=== PATIENT | female | born 1970 | race Caucasian/White ===

== ENCOUNTER 2016-11-19 13:24 | Emergency (ER) | payer BC ==
--- NOTE | 2016-11-19 14:09 | CR ---
EXAMINATION: PA chest radiograph. HISTORY: Shortness of breath. FINDINGS: The trachea is midline. The cardiomediastinal silhouette is within normal limits. No pulmonary infil trates, effusions or pneumothorax. Osseous structures appear unremarkable. IMPRESSION: No acute cardiopulmonary process.
[2016-11-19 14:17] LABS: CHLORIDE,CL 106 mmol/L (98-110); SODIUM,NA 138 mmol/L (136-146)
--- NOTE | 2016-11-19 14:35 | EDM.PDOC ---
ED HPI GENERAL MEDICAL PROBLEM - General Chief Complaint: Chest Pain Stated Complaint: CHEST PAIN Time Seen by Provider: 11/19/16 13:32 Source of Information: Reports: Patient History Limitations: Reports: No Limitations - History of Present Illness Onset: Today, Sudden Duration: Hour(s): Location: Reports: Chest Quality: Reports: Ache, Pressure Severity: Moderate right sternal Pain Score (Numeric/FACES): 5 - Related Data Allergies Allergy/AdvReac Type Severity Reaction Status Date / Time No Known Allergies Allergy Verified 11/19/16 13:32 Home Meds: Home Meds ALPRAZolam [Alprazolam] 1 mg PO BEDTIME PRN 11/19/16 [History] L.acidoph,Paracasei, B.lactis [Probiotic] 1 cap PO DAILY 11/19/16 [History] Pantoprazole [ProTONIX] 40 mg PO DAILY 11/19/16 [History] Past Medical History HEENT History: Reports: Other (See Below) Other HEENT History: pulsatile tenisits Gastrointestinal History: Reports: GERD - Past Surgical History HEENT Surgical History: Reports: Tonsillectomy GI Surgical History: Reports: Cholecystectomy Female Surgical History: Reports: Section, Cystectomy Social & Family History - Family History Cardiac: Reports: Hypertension Endocrine/Metabolic: Reports: Diabetes, Type I Oncologic: Reports: Pancreatic - Tobacco Use Smoking Status *Q: Never Smoker Second Hand Smoke Exposure: No - Caffeine Use Caffeine Use: Reports: Soda - Recreational Drug Use Recreational Drug Use: No ED ROS GENERAL - Review of Systems Review Of Systems: ROS reveals no pertinent complaints other than HPI. ED EXAM, GENERAL - Physical Exam Exam: See Below (see dictation) Course - Vital Signs Last Recorded V/S: Last Vital Signs Temp Pulse 88 11/19/16 13:28 Resp 14 11/19/16 13:28 BP 115/56 L 11/19/16 13:28 Pulse Ox 100 11/19/16 13:28 - Orders/Labs/Meds Orders: Active Orders 24 hr Category Date Time Status EKG 12 Lead [EKG Documentation Completion] [RC] STAT Care 11/19/16 13:37 Active EKG Documentation Completion [RC] STAT Care 11/19/16 13:35 Active HCG QUALITATIVE,URINE [URCHEM] Stat Lab 11/19/16 13:36 Uncollected UA W/MICROSCOPIC [URIN] Stat Lab 11/19/16 13:36 Uncollected Labs: Laboratory Tests 11/19/16 11/19/16 11/19/16 Range/Units 13:49 13:49 13:49 WBC 9.41 (4.0-11.0) K/uL RBC 4.46 (4.30-5.90) M/uL Hgb 12.8 (12.0-16.0) g/dL Hct 39.1 (36.0-46.0) % MCV 87.7 (80.0-98.0) fL MCH 28.7 (27.0-32.0) pg MCHC 32.7 (31.0-37.0) g/dL RDW Std Deviation 43.8 (28.0-62.0) fl RDW Coeff of Earnest 14 (11.0-15.0) % Plt Count 227 (150-400) K/uL MPV 10.40 (7.40-12.00) fL Neut % (Auto) 81.8 H (48.0-80.0) % Lymph % (Auto) 10.1 L (16.0-40.0) % Blair % (Auto) 7.7 (0.0-15.0) % Eos % (Auto) 0.3 (0.0-7.0) % Baso % (Auto) 0.1 (0.0-1.5) % Neut # (Auto) 7.7 H (1.4-5.7) K/uL Lymph # (Auto) 1.0 (0.6-2.4) K/uL Blair # (Auto) 0.7 (0.0-0.8) K/uL Eos # (Auto) 0.0 (0.0-0.7) K/uL Baso # (Auto) 0.0 (0.0-0.1) K/uL Nucleated RBC % 0.0 /100WBC Nucleated RBCs # 0 K/uL Sodium 138 (136-146) mmol/L Potassium 3.8 (3.5-5.1) mmol/L Chloride 106 (98-110) mmol/L Carbon Dioxide 20 L (21-31) mmol/L BUN 15 (6.0-23.0) mg/dL Creatinine 0.8 (0.6-1.5) mg/dL Est Cr Clr Drug Dosing 79.07 mL/min Estimated GFR (MDRD) > 60.0 ml/min Glucose 129 H (60-110) mg/dL Calcium 9.3 (8.8-10.8) mg/dL Total Bilirubin 0.5 (0.1-1.5) mg/dL AST 18 (5-40) IU/L ALT 17 (8-54) IU/L Alkaline Phosphatase 52 (40-150) Troponin I < 0.10 (0.0-0.29) NG/ML Total Protein 7.9 (6.0-8.0) g/dL Albumin 4.4 (3.5-5.0) g/dL Globulin 3.5 (2.0-3.5) g/dL Albumin/Globulin Ratio 1.3 (1.3-2.8) Amylase 43 (10-90) U/L Departure - Departure Time of Disposition: 14:34 Disposition: Home, Self-Care 01 Condition: good Clinical Impression: Heart palpitations Instructions: Nonspecific Chest Pain, [id number] Forms: ED Department Discharge Additional Instructions: The following information is given to patients seen in the emergency department who are being discharged to home. This information is to outline your options for follow-up care. We provide all patients seen in our emergency department with a follow-up referral. The need for follow-up, as well as the timing and circumstances, are variable depending upon the specifics of your emergency department visit. If you don't have a primary care physician on staff, we will provide you with a referral. We always advise you to contact your personal physician following an emergency department visit to inform them of the circumstance of the visit and for follow-up with them and/or the need for any referrals to a consulting specialist. The emergency department will also refer you to a specialist when appropriate. This referral assures that you have the opportunity for followup care with a specialist. All of these measure are taken in an effort to provide you with optimal care, which includes your followup. Under all circumstances we always encourage you to contact your private physician who remains a resource for coordinating your care. When calling for followup care, please make the office aware that this follow-up is from your recent emergency room visit. If for any reason you are refused follow-up, please contact the [facility] emergency department at and asked to speak to the emergency department charge nurse. Dr. Nix would like you to present to his cardiology office after discharge from the emergency room - My Orders Last 24 Hours: My Active Orders 11/19/16 13:35 EKG Documentation Completion [RC] STAT 11/19/16 13:36 HCG QUALITATIVE,URINE [URCHEM] Stat UA W/MICROSCOPIC [URIN] Stat 11/19/16 13:37 EKG 12 Lead [EKG Documentation Completion] [RC] STAT - Assessment/Plan Last 24 Hours: My Active Orders 11/19/16 13:35 EKG Documentation Completion [RC] STAT 11/19/16 13:36 HCG QUALITATIVE,URINE [URCHEM] Stat UA W/MICROSCOPIC [URIN] Stat 11/19/16 13:37 EKG 12 Lead [EKG Documentation Completion] [RC] STAT
[2016-11-19 19:17] VITALS: BP 106/49
== END 2016-11-19 14:55 | disposition home or self-care (01) ==
LOC: MW.ED 13:24
DX: R00.2 Palpitations (principal); K21.9 Gastro-esophageal reflux disease without esophagitis; Z79.899 Other long term (current) drug therapy; Z90.49 Acquired absence of other specified parts of digestive tract; Z98.890 Other specified postprocedural states
CPT/HCPCS: 36415; 71010; 71010-26; 80053; 82150; 84484; 85025; 99284; 99285-25

== ENCOUNTER 2016-11-20 11:12 | Emergency (ER) | payer BC ==
[2016-11-20] MEDS ORDERED: Sodium Chloride 0.9% 1,000 ML IV ONE (11:27)
--- NOTE | 2016-11-20 11:33 | EDM.PDOC ---
ED HPI GENERAL MEDICAL PROBLEM - General Chief Complaint: Cardiovascular Problem Stated Complaint: HEART PALPATATIONS Time Seen by Provider: 11/20/16 11:21 Source of Information: Reports: Patient History Limitations: Reports: No Limitations - History of Present Illness INITIAL COMMENTS - FREE TEXT/NARRATIVE: History of present illness: []Patient presents with palpitations with exertion. She was seen here in the emergency room yesterday for similar symptoms and also saw Dr. Nix the sawmill tally clerk in his clinic yesterday. She is scheduled for Holter monitoring and an echocardiogram next week. This morning she stated she walked up stairs and felt severe pounding in her chest and has pain just right of her xiphoid process. She states she has severe reflux disease but this does not feel the same. She denies any sweating, dizziness, shortness of breath or syncope. Review of systems: As per history of present illness and below otherwise all systems reviewed and negative. Past medical history: As per history of present illness and as reviewed below otherwise noncontributory. Surgical history: As per history of present illness and as reviewed below otherwise noncontributory. Social history: No reported history of drug or alcohol abuse. Family history: As per history of present illness and as reviewed below otherwise noncontributory. Physical exam: General: Well developed, well nourished in NAD HEENT: Atraumatic, normocephalic, pupils reactive, negative for conjunctival pallor or scleral icterus, mucous membranes moist, throat clear, neck supple, nontender, trachea midline. Lungs: Clear to auscultation, breath sounds equal bilaterally, chest nontender. Heart: S1S2, regular, negative for clicks, rubs, or JVD. Abdomen: Soft, nondistended, nontender. Negative for masses or hepatosplenomegaly. Negative for costovertebral tenderness. Pelvis: Stable nontender. Genitourinary: Deferred. Rectal: Deferred. Extremities: Atraumatic, negative for cords or calf pain. Neurovascular unremarkable. Neuro: Awake, alert, oriented. Cranial nerves II through XII unremarkable. Cerebellum unremarkable. Motor and sensory unremarkable throughout. Exam nonfocal. Diagnostics: []EKG normal, TSH recheck of glucose which was elevated yesterday and d-dimer are all within normal limits. Therapeutics: []Patient was given a liter of fluid with improvement as she did not feel the palpitations when she got up and was ambulated after being hydrated. Impression: []Palpitations Plan: []Patient is already scheduled to have Holter monitoring, and echocardiogram per Dr. Nix she is encouraged to aggressively hydrate to alleviate symptoms the palpitations with exertion. Definitive disposition and diagnosis as appropriate pending reevaluation and review of above. Middle Chest Pain Score (Numeric/FACES): 5 - Related Data Allergies Allergy/AdvReac Type Severity Reaction Status Date / Time No Known Allergies Allergy Verified 11/20/16 12:11 Home Meds: Home Meds ALPRAZolam [Alprazolam] 1 mg PO BEDTIME PRN 11/19/16 [History] L.acidoph,Paracasei, B.lactis [Probiotic] 1 cap PO DAILY 11/19/16 [History] Pantoprazole [ProTONIX] 40 mg PO DAILY 11/19/16 [History] Past Medical History HEENT History: Reports: Other (See Below) Other HEENT History: pulsatile tenisits Gastrointestinal History: Reports: GERD - Past Surgical History HEENT Surgical History: Reports: Tonsillectomy GI Surgical History: Reports: Cholecystectomy Female Surgical History: Reports: Section, Cystectomy Social & Family History - Family History Cardiac: Reports: Hypertension Endocrine/Metabolic: Reports: Diabetes, Type I Oncologic: Reports: Pancreatic - Tobacco Use Smoking Status *Q: Never Smoker Second Hand Smoke Exposure: No - Caffeine Use Caffeine Use: Reports: Soda - Recreational Drug Use Recreational Drug Use: No ED ROS GENERAL - Review of Systems Review Of Systems: See Below ED EXAM, GENERAL - Physical Exam Exam: See Below (See history of present illness) Course - Vital Signs Last Recorded V/S: Last Vital Signs Temp 36.6 C 11/20/16 11:18 Pulse 78 11/20/16 11:32 Resp 16 11/20/16 11:32 BP 114/71 11/20/16 11:32 Pulse Ox 97 11/20/16 11:32 Orthostatic Blood Pressure [ 110/69 Standing] Orthostatic Blood Pressure [ 110/70 Sitting] Orthostatic Blood Pressure [ 102/61 Supine] - Orders/Labs/Meds Orders: Active Orders 24 hr Category Date Time Status Blood Glucose Check, Bedside [RC] ONETIME Care 11/20/16 11:51 Active EKG 12 Lead [EKG Documentation Completion] [RC] STAT Care 11/20/16 11:34 Active UA W/MICROSCOPIC [URIN] Stat Lab 11/20/16 11:34 Uncollected Saline Lock Insert [OM.PC] Stat Oth 11/20/16 11:27 Ordered Labs: Laboratory Tests 11/20/16 11/20/16 11/20/16 Range/Units 11:20 11:20 11:20 D-Dimer, Quantitative 0.27 (0.0-0.52) mg/LFEU POC Glucose (60-110) mg/dL Troponin I < 0.10 (0.0-0.29) NG/ML TSH 3rd Generation 1.99 (0.47-5.0) uIU/mL 11/20/16 Range/Units 12:13 D-Dimer, Quantitative (0.0-0.52) mg/LFEU POC Glucose 80 (60-110) mg/dL Troponin I (0.0-0.29) NG/ML TSH 3rd Generation (0.47-5.0) uIU/mL Meds: Medications Discontinued Medications Generic Name Dose Route Start Last Admin Trade Name Bernardq PRN Reason Stop Dose Admin Sodium Chloride 1,000 mls @ 999 mls/hr 11/20/16 11:27 11/20/16 11:30 Normal Saline IV 11/20/16 12:27 999 mls/hr .Bolus ONE Administration Departure - Departure Time of Disposition: 12:53 Disposition: Home, Self-Care 01 Condition: good Clinical Impression: Palpitations Forms: ED Department Discharge Additional Instructions: The following information is given to patients seen in the emergency department who are being discharged to home. This information is to outline your options for follow-up care. We provide all patients seen in our emergency department with a follow-up referral. The need for follow-up, as well as the timing and circumstances, are variable depending upon the specifics of your emergency department visit. If you don't have a primary care physician on staff, we will provide you with a referral. We always advise you to contact your personal physician following an emergency department visit to inform them of the circumstance of the visit and for follow-up with them and/or the need for any referrals to a consulting specialist. The emergency department will also refer you to a specialist when appropriate. This referral assures that you have the opportunity for follow-up care with a specialist. All of these measure are taken in an effort to provide you with optimal care, which includes your follow-up. Under all circumstances we always encourage you to contact your private physician who remains a resource for coordinating your care. When calling for follow-up care, please make the office aware that this follow-up is from your recent emergency room visit. If for any reason you are refused follow-up, please contact the [facility] Emergency Department at and asked to speak to the emergency department charge nurse. Increase fluid intake. [facility] [address] [place] [address] - My Orders Last 24 Hours: My Active Orders 11/20/16 11:27 Saline Lock Insert [OM.PC] Stat 11/20/16 11:34 EKG 12 Lead [EKG Documentation Completion] [RC] STAT UA W/MICROSCOPIC [URIN] Stat 11/20/16 11:51 Blood Glucose Check, Bedside [RC] ONETIME - Assessment/Plan Last 24 Hours: My Active Orders 11/20/16 11:27 Saline Lock Insert [OM.PC] Stat 11/20/16 11:34 EKG 12 Lead [EKG Documentation Completion] [RC] STAT UA W/MICROSCOPIC [URIN] Stat 11/20/16 11:51 Blood Glucose Check, Bedside [RC] ONETIME
[2016-11-20 13:02] VITALS: BP 107/67
== END 2016-11-20 13:00 | disposition home or self-care (01) ==
LOC: MW.ED 11:12
DX: R00.2 Palpitations (principal); K21.9 Gastro-esophageal reflux disease without esophagitis; R73.9 Hyperglycemia, unspecified; Z90.49 Acquired absence of other specified parts of digestive tract; Z98.890 Other specified postprocedural states; Z90.6 Acquired absence of other parts of urinary tract; Z79.899 Other long term (current) drug therapy
CPT/HCPCS: 36415; 82962; 83036; 84443; 84484; 85379; 93005; 96360; 99285; J7040; 99283

== ENCOUNTER 2021-01-17 22:47 | Emergency (ER) | payer BC ==
[2021-01-18] MEDS ORDERED: Lactated Ringers 1,000 ML IV SCH (00:15)
[2021-01-18 00:24] LABS: BLOOD UREA NITROGEN,BUN 23 mg/dL (7.0-18.0); CARBON DIOXIDE,CO2 19.1 mmol/L (21.0-32.0); CHLORIDE,CL 102 mmol/L (98-107); GLUCOSE RANDOM 149 mg/dL (74-106); POTASSIUM,K 3.7 mmol/L (3.5-5.1); SODIUM,NA 139 mmol/L (136-145)
[2021-01-18] MEDS ORDERED: Ondansetron 4 MG/2 ML SDV IVPUSH ONE (00:52)
[2021-01-18] MEDS ORDERED: Dextrose 5%-Lactated Ringers 1,000 ML IV SCH (01:00)
--- NOTE | 2021-01-18 02:13 | EDM.PDOC ---
ED HPI GENERAL MEDICAL PROBLEM - General Chief Complaint: Gastrointestinal Problem Stated Complaint: CLEMENTINE FEELING ILL Time Seen by Provider: 01/17/21 23:28 - History of Present Illness INITIAL COMMENTS - FREE TEXT/NARRATIVE: CHIEF COMPLAINT(S): Diarrhea HISTORY OF PRESENT ILLNESS: This is a 51-year-old woman without any significant past medical history except for acid reflux who comes to the emergency department with a chief complaint of diarrhea. The patient states that for approximately 1 day now she has been experiencing diarrhea. She describes diffuse abdominal pain not associated with any nausea or vomiting. She states that she has been able to tolerate p.o. however she has not had a lot of things to eat today. She states that she does have diarrhea and has had multiple throughout the day. She states that nobody else has similar symptoms. She denies any melena, hematochezia or blood in her stool. She denies any fevers or chills. She denies any recent travel or recent antibiotic use. REVIEW OF SYSTEMS: Constitutional: Denies fever, chills. Eyes: Denies eye pain Ears, Nose, Mouth, & Throat: Denies earache Cardiovascular: Denies chest pain Respiratory: Denies shortness of breath Gastrointestinal: Positive for diffuse abdominal pain, diarrhea. Denies vomiting, hematochezia, hematemesis, bilious emesis Genitourinary: Denies hematuria Skin:Denies a rash MSK: Denies joint pain Neurological: Denies blurred vision Psychiatric: Denies depression PAST MEDICAL HISTORY: As per history of present illness and as reviewed below otherwise noncontributory. SURGICAL HISTORY: As per history of present illness and as reviewed below otherwise noncontributory. SOCIAL HISTORY: As per history of present illness and as reviewed below otherwise noncontributory. FAMILY HISTORY: As per history of present illness and as reviewed below otherwise noncontributory. EXAMINATION OF ORGAN SYSTEMS/BODY AREAS: Constitutional: Blood pressure was 105/67, heart rate 94, respiratory rate 18 with an oxygen saturation of 98% on room air. Temperature 36 point General: overall well-appearing woman who is in no acute distress Psychiatric: Appropriate mood and affect. Eyes: No scleral icterus or conjunctival erythema ENMT: Moist mucous membranes. No pharyngeal erythema Cardiovascular: Regular, rate, and rhythm. No gallops, murmurs, or rubs. Bilateral upper extremity pulses symmetric and intact. No peripheral edema. No JVD. Respiratory: Lungs clear to auscultation bilaterally. No wheezes, rales, or rhonchi. Gastrointestinal: Soft, non-tender, non-distended. Normoactive bowel sounds no rebound or guarding. Genitourinary: No suprapubic tenderness Musculoskeletal: Normal range of motion. Skin: No lesions or abrasions. Neurological: Alert, GCS 15 MEDICAL DECISION MAKING AND COURSE IN THE ED WITH INTERPRETATION/REVIEW OF DIAGNOSTIC STUDIES: This is a 51-year-old woman without any significant past medical history who comes to the emergency department with acute onset diarrhea associated with some mild nausea. At this time the patient's vitals are normal and the patient overall appears well. There are no risk factors for C. difficile colitis or any infectious diarrhea. At this time we will obtain screening labs and provide the patient with Zofran and LR for symptomatic treatment. We will reevaluate after laboratory analysis. I do not believe any further work-up or imaging is indicated. Laboratory analysis reveals elevated WBC count at 11.5 elevated hemoglobin at 16.3 and hematocrit of 46.3 likely representing hemoconcentration. CMP reveals metabolic acidosis with a bicarbonate of 19.1 with mild elevated BUN at 23 and hyperglycemia 149 otherwise unremarkable. Geafz-ev-vhoa glucose 158. After labs and given the acidosis I did provide the patient with D5 LR given the possibility of ketoacidosis from dehydration/diarrhea. I did discuss the results with the patient at this time. She has been able to tolerate p.o. in the emergency department and has not had any worsening of her pain. Patient reported symptomatic improvement. At this time I did encourage the patient to continue with p.o. hydration at home and to return for any worsening symptoms. She was given strict return precautions. She was amenable discharge and had no further questions DISPOSITION: The patient was discharged home in stable condition. The patient will follow up with primary care physician in 3 to 5 days CONDITION: Fair PROCEDURES: None FINAL IMPRESSION(S)/DIAGNOSES: 1. Acute diarrhea Trevor Katz M.D. Abdomen Pain Score (Numeric/FACES): 7 - Related Data Allergies Allergy/AdvReac Type Severity Reaction Status Date / Time No Known Allergies Allergy Verified 01/17/21 23:21 Home Meds: Home Meds ALPRAZolam [Alprazolam] 1 mg PO BEDTIME PRN 11/19/16 [History] L.acidoph,Paracasei, B.lactis [Probiotic] 1 cap PO DAILY 11/19/16 [History] Pantoprazole [ProTONIX] 40 mg PO DAILY 11/19/16 [History] Ondansetron [Zofran ODT] 4 mg PO Q6H PRN #8 tab.dis 01/18/21 [Rx] Past Medical History HEENT History: Reports: Other (See Below) Other HEENT History: pulsatile tenisits Other Cardiovascular History: "tachycardia" Respiratory History: Reports: None Gastrointestinal History: Reports: GERD Genitourinary History: Reports: None TOOL SETTER History: Reports: Musculoskeletal History: Reports: None Neurological History: Reports: None Psychiatric History: Reports: None Endocrine/Metabolic History: Reports: None Insulin Pump Model and Mail Handlers Supervisor: none Hematologic History: Reports: None Immunologic History: Reports: None Oncologic (Cancer) History: Reports: None Dermatologic History: Reports: None - Infectious Disease History Infectious Disease History: Reports: Chicken Pox - Past Surgical History Head Surgeries/Procedures: Reports: None HEENT Surgical History: Reports: Tonsillectomy GI Surgical History: Reports: Cholecystectomy Female Surgical History: Reports: Section, Cystectomy Social & Family History - Family History Family Medical History: No Pertinent Family History Cardiac: Reports: Hypertension Endocrine/Metabolic: Reports: Diabetes, Type I Oncologic: Reports: Pancreatic - Caffeine Use Caffeine Use: Reports: Soda Caffeine Use Comment: 1drink/day - Recreational Drug Use Recreational Drug Use: No ED ROS GENERAL - Review of Systems Review Of Systems: See Below ED EXAM, GENERAL - Physical Exam Exam: See Below Course - Vital Signs Last Recorded V/S: Last Vital Signs Temp 36.2 C 01/17/21 23:00 Pulse 66 01/18/21 02:00 Resp 16 01/18/21 02:00 BP 105/67 01/17/21 23:00 Pulse Ox 99 01/18/21 02:00 - Orders/Labs/Meds Labs: Laboratory Tests 01/17/21 01/17/21 01/17/21 Range/Units 00:00 00:00 23:52 WBC 11.50 H (4.0-11.0) K/uL RBC 5.32 (4.30-5.90) M/uL Hgb 16.3 H (12.0-16.0) g/dL Hct 46.3 H (36.0-46.0) % MCV 87.0 (80.0-98.0) fL MCH 30.6 (27.0-32.0) pg MCHC 35.2 (31.0-37.0) g/dL RDW Std Deviation 41.5 (28.0-62.0) fl RDW Coeff of Earnest 13 (11.0-15.0) % Plt Count 254 (150-400) K/uL MPV 11.00 (7.40-12.00) fL Neut % (Auto) 92.7 H (48.0-80.0) % Lymph % (Auto) 3.1 L (16.0-40.0) % Surry % (Auto) 4.1 (0.0-15.0) % Eos % (Auto) 0.0 (0.0-7.0) % Baso % (Auto) 0.1 (0.0-1.5) % Neut # (Auto) 10.7 H (1.4-5.7) K/uL Lymph # (Auto) 0.4 L (0.6-2.4) K/uL Surry # (Auto) 0.5 (0.0-0.8) K/uL Eos # (Auto) 0.0 (0.0-0.7) K/uL Baso # (Auto) 0.0 (0.0-0.1) K/uL Nucleated RBC % 0.0 /100WBC Nucleated RBCs # 0 K/uL Sodium 139 (136-145) mmol/L Potassium 3.7 (3.5-5.1) mmol/L Chloride 102 (98-107) mmol/L Carbon Dioxide 19.1 L (21.0-32.0) mmol/L BUN 23 H (7.0-18.0) mg/dL Creatinine 0.8 (0.6-1.0) mg/dL Est Cr Clr Drug Dosing TNP Estimated GFR (MDRD) > 60.0 ml/min Glucose 149 H (74-106) mg/dL POC Glucose 158 H (70-99) mg/dL Calcium 10.1 (8.5-10.1) mg/dL Total Bilirubin 0.7 (0.2-1.0) mg/dL AST 23 (15-37) IU/L ALT 33 (14-63) IU/L Alkaline Phosphatase 95 (46-116) U/L Total Protein 8.9 H (6.4-8.2) g/dL Albumin 4.4 (3.4-5.0) g/dL Globulin 4.5 H (2.6-4.0) g/dL Albumin/Globulin Ratio 1.0 (0.9-1.6) Meds: Medications Discontinued Medications Generic Name Dose Route Start Last Admin Trade Name Freq PRN Reason Stop Dose Admin Lactated Ringer's 1,000 mls @ 999 mls/hr 01/18/21 00:15 01/18/21 00:19 Ringers, Lactated IV 999 mls/hr ASDIRECTED JULIANA Administration Dextrose/Lactated Ringer's 1,000 mls @ 999 mls/hr 01/18/21 01:00 01/18/21 01:02 Dextrose 5%-Lactated Ringers IV 999 mls/hr ASDIRECTED JULIANA Administration Ondansetron HCl 4 mg 01/18/21 00:52 01/18/21 01:02 Ondansetron 4 Mg/2 Ml Sdv IVPUSH 01/18/21 00:53 4 mg ONETIME ONE Administration Departure - Departure Time of Disposition: 02:13 Disposition: Home, Self-Care 01 Condition: Fair Clinical Impression: Diarrhea - Discharge Information *PRESCRIPTION DRUG MONITORING PROGRAM REVIEWED*: No *COPY OF PRESCRIPTION DRUG MONITORING REPORT IN PATIENT JOSE: No Prescriptions: Ondansetron [Zofran ODT] 4 mg PO Q6H PRN #8 tab.dis PRN Reason: Nausea/Vomiting Instructions: Food Choices to Help Relieve Diarrhea, Adult, Diarrhea, Adult, [id number] Referrals: PCP,None [Primary Care Provider] - Forms: ED Department Discharge Additional Instructions: Your evaluated today on an emergent basis. At this time it is important that you continue with fluid hydration as we discussed. I did send a prescription for Zofran to the pharmacy so that you can tolerate fluids as fluid hydration is important. If you need you may use [id number] Imodium to help slow down the diarrhea. Otherwise please follow-up with primary care physician. If you have any blood, fever or continued dehydration please return to the emergency department. [facility] - [facility] [address] [place] [address] [facility] [address] [place] [id number] The patient is informed of any results of their evaluation and diagnostic workup and all questions are answered. They are given discharge instructions and return precautions. The patient is stable for discharge. The patient states they understand and agree with the plan and that they will return if their symptoms get worse or if they have any new concerns. The following information is given to patients seen in the emergency department who are being discharged to home. This information is to outline your options for follow-up care. We provide all patients seen in our emergency department with a follow-up referral. The need for follow-up, as well as the timing and circumstances, are variable depending upon the specifics of your emergency department visit. If you don't have a primary care physician on staff, we will provide you with a referral. We always advise you to contact your personal physician following an emergency department visit to inform them of the circumstance of the visit and for follow-up with them and/or the need for any referrals to a consulting specialist. The emergency department will also refer you to a specialist when appropriate. This referral assures that you have the opportunity for follow-up care with a specialist. All of these measure are taken in an effort to provide you with optimal care, which includes your follow-up. Under all circumstances we always encourage you to contact your private physician who remains a resource for coordinating your care. When calling for follow-up care, please make the office aware that this follow-up is from your recent emergency room visit. If for any reason you are refused follow-up, please contact the [facility] Emergency Department at and asked to speak to the emergency department charge nurse. Sepsis Event Note (ED) - Evaluation Sepsis Screening Result: No Definite Risk
[2021-01-18 04:41] VITALS: BP 105/67; PULSE 66
== END 2021-01-18 02:00 | disposition home or self-care (01) ==
LOC: MW.ED 22:47
DX: R19.7 Diarrhea, unspecified (principal); K21.9 Gastro-esophageal reflux disease without esophagitis; Z79.899 Other long term (current) drug therapy
CPT/HCPCS: 36415; 80053; 82947; 85025; 96374; 99284; J2405; J7120; J7121